=== PATIENT | female | born 1990 | race Caucasian/White ===

== ENCOUNTER 2019-11-11 14:06 | Emergency (ER) | payer OTHER ==
[~2019-11-11] VITALS: Ht 177.8 cm; Wt 74.6 kg
--- NOTE | 2019-11-11 15:00 | NUR ---
ASSUMED CARE OF PT AT THIS TIME FROM LOBBY. AMBULATORY TO ROOM WITH STEADY GAIT. 29 Y/O F PRESENTS STATING "I WENT UP TO L&D BUT THEY SEND ME DOWN HERE BECAUSE I WASNT 21 WEEKS. I STARTED HAVING MISCARRIAGE ABOUT 4 WEEKS AGO, LAST NIGHT FEVER, CHILLS, ABD PAIN AND DISCHARGE, LIKE YELLOW BUT I'M BLEEDING STILL SO HARD TO TELL, CALLED MY OB AND THEY TOLD ME TO COME IN." RATES ABD/SUPRAPUBIC PAIN 05/18, TENDER TO PALPATION. G1, P0, A0. LMP 07/24/2019, EDC 05/01/2020. PT REPORTS USING 1-2 PADS PER HOUR "BLEEDING NOT REALLY THAT HEAVY ANYMORE." A&OX4. CONT PULSE OX, BP MONITORS APPLIED. VSS. CALL LIGHT IN REACH. FALL PRECUATIONS IN PLACE. AWAITING EVAL BY ERP
[2019-11-11] MEDS ORDERED: SODIUM CHLORIDE FLUSH 10ML SYR IVF ONE (16:00)
--- NOTE | 2019-11-11 16:02 | NUR ---
IV PLACED AND LABS DRAWN BY MALCOLM LOWRY. PT AMBULATED TO RESTROOM WITH STEADY. CLEAN CATCH UA COLLECTED AND SENT TO LAB. PT AWAITING US. RESTING COMFORTABLY. VSS. CALL LIGHT IN REACH. FALL PRECAUTIONS IN PLACE.
[2019-11-11 16:12] LABS: BASOPHILS # (AUTO) 0.03 x10^3/uL (0-0.1); BASOPHILS % (AUTO) 0 % (0-1); EOSINOPHILS # (AUTO) 0.04 x10^3/uL (0-0.4); EOSINOPHILS % (AUTO) 1 % (1-7); LYMPHOCYTES # (AUTO) 1.12 x10^3/uL (1-3.4); LYMPHOCYTES % (AUTO) 19 % (22-44); MD NO; MEAN CORPUSCULAR HEMOGLOBIN 29.3 pg (27.0-34.8); MEAN CORPUSCULAR HGB CONC 32.8 g/dL (32.4-35.8); MEAN CORPUSCULAR VOLUME 89.3 fL (80-100); MEAN PLATELET VOLUME 7.9 fL (7.4-10.4); MONOCYTES # (AUTO) 0.97 x10^3/uL (0.2-0.8); MONOCYTES % (AUTO) 16 % (2-9); NEUTROPHILS # (AUTO) 3.82 x10^3/uL (1.8-6.8); NEUTROPHILS % (AUTO) 64 % (42-75); PLATELET COUNT 293 x10^3/uL (130-400); RED BLOOD COUNT 4.37 x10^6/uL (3.82-5.3); RED CELL DISTRIBUTION WIDTH 14.1 % (9.6-15.2)
[2019-11-11 16:24] LABS: ALANINE AMINOTRANSFERASE 15 U/L (12-78); ALBUMIN 4.1 g/dL (3.4-5.0); ANION GAP 5 mmol/L (5-15); CALCIUM 9.3 mg/dL (8.5-10.1); CHLORIDE 109 mmol/L (98-107); CREATININE 0.91 mg/dL (0.55-1.02)
[2019-11-11 16:28] LABS: MICROSCOPIC INDICATED
[2019-11-11 16:28] LABS: ALKALINE PHOSPHATASE 83 U/L (45-117); BILIRUBIN,TOTAL 0.3 mg/dL (0.2-1.0); TOTAL PROTEIN 7.5 g/dL (6.4-8.2)
--- NOTE | 2019-11-11 16:37 | NUR ---
BLOOD BANK CALLED STATES RETYPE NEEDED. DISCUSSED WITH DR. LUKE, GUY.
--- NOTE | 2019-11-11 17:03 | NUR ---
LAB AT BEDSIDE FOR RETYPE, AWAITING RHOGAM FROM BLOOD BANK
--- NOTE | 2019-11-11 17:11 | NUR ---
PT IN US
--- NOTE | 2019-11-11 17:48 | NUR ---
PT BACK FROM US. NAD NOTED. VSS. TO SET UP PELVIC EXAM PER MD REQUEST. DENIES NEED TO USE RESTROOM. CALL LIGHT IN REACH. FALL PRECUATIONS IN PLACE. BLOOD BANK CALLED, REQUESTED ADDITIONAL INFORMATION FROM PT AND ERP.
--- NOTE | 2019-11-11 18:00 | NUR ---
PT REPORTS "DR. VIVAS GAVE ME RHOGAM A FEW WEEKS AGO WHEN THE HEAVY BLEEDING STARTED." DISCUSSED WITH DR. LUKE, AWARE STATES "PT DOES NOT NEED REPEAT RHOGAM." BLOOD BANK CALLED, THIS RN AND DR. LUKE SPOKE WITH CHER IN BLOOD BANK. ORDER CANCELLED BY ERP. PELVIC EXAM SET UP, PT MOVED TO PELVIC BED.
--- NOTE | 2019-11-11 18:27 | NUR ---
DR. LUKE AT BEDSIDE FOR PELVIC EXAM, THIS RN AND MALCOLM LOWRY CHAPARONES. DR. LUKE SPOKE WITH CHER AGAIN IN BLOOD BANK, "THEY INSIST WE GIVE THE RHOGAM AGAIN, EVEN THOUGH PT GOT IT 3-4 WEEKS AGO." PER DR. LUKE TO ADMIN RHOGAM, PT GIVEN INFORMED CONSENT BY ERP. PT TO SIGN CONSENT
--- NOTE | 2019-11-11 18:43 | NUR ---
CONSENT FOR RHOGAM SIGNED BY PT AND ERP, PLACED ON PAPER CHART, PURPLE SLIP TAKEN TO LAB
--- NOTE | 2019-11-11 19:04 | NUR ---
REPORT FROM FABBY LOWRY.
[2019-11-11 19:09] VITALS: BP 123/51
--- NOTE | 2019-11-11 19:11 | NUR ---
RHOGHAM GIVEN IM LEFT VENTRAGLUTEAL.
--- NOTE | 2019-11-11 19:14 | NUR ---
RHOGAM VERIFIED WITH BASHIR RN AT BEDSIDE. VERIFIED MEDICATION AND ORDER WITH DR. LUKE. ADMIN PER MD ORDERS. BEDSIDE REPORT AND TRANSFER OF CARE TO BASHIR RN AT THIS TIME.
[2019-11-11] MEDS ORDERED: AMOXICILLIN/CLAV 875-125MG TABLET ONE (19:16)
[2019-11-11] MEDS ORDERED: AMOXICILLIN/CLAV 875-125MG TABLET PO ONE (19:30)
[2019-11-11 19:31] VITALS: BP 114/55
[2019-11-11] MEDS ORDERED: RHOGAM FROM BLOOD BANK 1 NOTE EA IM/IV ONE (20:00)
== END 2019-11-11 19:38 | disposition home or self-care (01) ==
LOC: ED 15:08
DX: O03.4 Incomplete spontaneous abortion without complication (principal); R50.9 Fever, unspecified
CPT/HCPCS: 36415; 76801; 80053; 81001; 84702; 85025; 86850; 86870; 86900; 87086; 96372; 99284; J2790

== ENCOUNTER 2019-11-13 15:18 | Day surgery (SDC) | payer OTHER ==
[~2019-11-13] VITALS: Ht 177.8 cm; Wt 77.5 kg
[2019-11-13 16:49] LABS: MEAN CORPUSCULAR HGB CONC 32.1 g/dL (32.4-35.8); MEAN CORPUSCULAR VOLUME 90.2 fL (80-100); MEAN PLATELET VOLUME 7.7 fL (7.4-10.4); PLATELET COUNT 277 x10^3/uL (130-400); RED BLOOD COUNT 3.71 x10^6/uL (3.82-5.3); RED CELL DISTRIBUTION WIDTH 13.8 % (9.6-15.2)
[2019-11-13 16:56] LABS: ALBUMIN 3.6 g/dL (3.4-5.0); ANION GAP 7 mmol/L (5-15); CALCIUM 9.1 mg/dL (8.5-10.1); CHLORIDE 107 mmol/L (98-107); CREATININE 0.93 mg/dL (0.55-1.02)
[2019-11-13] MEDS ORDERED: SODIUM CHLORIDE FLUSH 10ML SYR IVF ONE (17:00)
[2019-11-13] MEDS ORDERED: SODIUM CHLORIDE 0.9% 1,000ML IVBOLUS ONE (17:00)
[2019-11-13] MEDS ORDERED: ONDANSETRON 2MG/ML, 2ML IVPush ONE ×2 (17:00→19:00)
[2019-11-13] MEDS ORDERED: MORPHINE SULFATE 4 MG/ML, 1ML IVPush PRN (17:00)
[2019-11-13 17:04] LABS: BASOPHILS # (AUTO) 0.05 x10^3/uL (0-0.1); BASOPHILS % (AUTO) 1 % (0-1); EOSINOPHILS % (AUTO) 1 % (1-7); LYMPHOCYTES % (AUTO) 14 % (22-44); MD SCAN; MONOCYTES % (AUTO) 12 % (2-9); NEUTROPHILS # (AUTO) 6.98 x10^3/uL (1.8-6.8); NEUTROPHILS % (AUTO) 73 % (42-75)
[2019-11-13] MEDS ORDERED: ONDANSETRON 2MG/ML, 2ML ONE ×3 (17:12→20:19)
[2019-11-13] MEDS ORDERED: SODIUM CHLORIDE 0.9% 1,000ML IV ONE (18:00)
--- NOTE | 2019-11-13 18:13 | NUR ---
ALEX RN AT BEDSIDE. DR. LUKE MADE AWARE OF INITIAL HYPOTENSION, 2ND LITER ORDERED AND INITIATED ORDERED. PT'S COLORING HAS IMPROVED. PT REPORTS FEELING BETTER AT THIS TIME. US COMPLETE AT BEDSIDE. PT HAS WARMING BLANKETS AND WARMER IN PLACE AFTER C/O FEELING CHILLED. PT REPORTS IMPROVED COMFORT WITH MEASURES TAKEN.
[2019-11-13] MEDS ORDERED: ACETAMINOPHEN 500 MG TABLET ONE (18:20)
[2019-11-13] MEDS: ACETAMINOPHEN 500 MG TABLET PO ONE ×2 (18:22→18:37)
--- NOTE | 2019-11-13 18:33 | NUR ---
PT REPORTS SUDDEN ONSET OF PRESSURE BEHIND THE EYES AND NAUSEA AFTER SITTING UP TO TAKE MEDICATIONS. MD MADE AWARE. NEURO EXAM NEGATIVE FOR ANY DEFICITS.
--- NOTE | 2019-11-13 18:36 | NUR ---
MARLY AT BEDSIDE TO DISCUSS POC C PT AND SPOUSE.
--- NOTE | 2019-11-13 18:36 | NUR ---
PT WAS UNABLE TO TAKE PO TYLENOL D/T NAUSEA. FOLLOWING US RESULTS, ED MD STATES TO HOLD PO MEDICATIONS PT WILL NEED D&C IN OR TONIGHT.
[2019-11-13] MEDS ORDERED: MISOPROSTOL 200 MCG TABLET ONE (19:00)
[2019-11-13] MEDS ORDERED: METHYLERGONOVINE 0.2 MG/ML IM ONE (19:00)
[2019-11-13] MEDS ORDERED: SILVER NITRATE STICK TP ONE (19:00)
[2019-11-13] MEDS ORDERED: OXYTOCIN 10 UNITS/ML, 1ML ONE ×2 (19:00→20:06)
--- NOTE | 2019-11-13 19:00 | NUR ---
REPORT TO SULLY SECURITY SHIFT MANAGER.
[2019-11-13] MEDS ORDERED: CHLORHEXIDINE 15 ML UDC ONE (19:08)
--- NOTE | 2019-11-13 19:10 | NUR ---
CONSENT FOR BLOOD SIGNED. OR HERE TO TRANSPORT PT BRAYAN. SULLY IN OR STATES SHE WILL INITIATE RBC ORDER.
[2019-11-13] MEDS ORDERED: BUPIVACAINE/PF 0.25% ONE (19:21)
[2019-11-13] MEDS ORDERED: EPINEPHRINE 1 MG/ML, 1ML ONE (19:22)
[2019-11-13] MEDS ORDERED: MIDAZOLAM 1 MG/ML, 2ML ONE (19:27)
[2019-11-13] MEDS ORDERED: FENTANYL PF 100 MCG/2ML ONE (19:28)
[2019-11-13] MEDS ORDERED: LIDOCAINE-MPF 1%, 2ML ONE (19:48)
[2019-11-13] MEDS ORDERED: PROMETHAZINE 25 MG SUPP PR PRN (20:00)
[2019-11-13] MEDS ORDERED: OXYTOCIN 10 UNITS/ML, 1ML IVPB ONE (20:00)
[2019-11-13] MEDS ORDERED: PROMETHAZINE 25 MG/ML, 1ML IVPush PRN (20:00)
[2019-11-13] MEDS ORDERED: OXYcodone 5 MG/5 ML ORAL.SOL UDC PO PRN (20:00)
[2019-11-13] MEDS ORDERED: ONDANSETRON 2MG/ML, 2ML IVPush PRN (20:00)
[2019-11-13] MEDS ORDERED: MISOPROSTOL 200 MCG TABLET PO ONE (20:00)
[2019-11-13] MEDS ORDERED: BUPIVACAINE/PF-EPI 0.25% 1:200K SQ ONE (20:00)
[2019-11-13] MEDS ORDERED: HYDROmorphone 1 MG/ML, 1ML INJ IVPush PRN (20:00)
[2019-11-13] MEDS ORDERED: DIAZEPAM 5 MG/ML, 2ML IVPush PRN (20:00)
[2019-11-13] MEDS ORDERED: LORazepam 2 MG/ML, 1ML IVPush PRN (20:00)
[2019-11-13] MEDS ORDERED: ACETAMINOPHEN 325 MG TABLET PO PRN (20:00)
[2019-11-13] MEDS ORDERED: FENTANYL PF 100 MCG/2ML IV PRN (20:00)
[2019-11-13] MEDS ORDERED: DEXAMETHASONE 4 MG/ML, 1ML ONE (20:19)
[2019-11-13] MEDS ORDERED: CEFAZOLIN 1,000 MG ONE (20:19)
[2019-11-13] MEDS ORDERED: PROPOFOL 10 MG/ML, 20ML ONE (20:19)
[2019-11-13 22:00] VITALS: BP 98/63
[2019-11-13] MEDS ORDERED: OXYC-302 PO (22:00)
[2019-11-13] MEDS ORDERED: IBUP-1222 PO (22:01)
[2019-11-13] MEDS ORDERED: DOCU-131 PO (22:02)
[2019-11-13] MEDS ORDERED: iron sulfate PO (22:04)
[2019-11-13] MEDS ORDERED: ONDANSETRON 2MG/ML, 2ML IV PRN (22:30)
[2019-11-13] MEDS ORDERED: OXYcodone/APAP 5/325MG TABLET PO PRN (22:30)
[2019-11-13] MEDS ORDERED: morphine SULFATE 10 MG/ML, 1ML IV PRN (22:30)
[2019-11-13] MEDS ORDERED: HYDROmorphone 1 MG/ML, 1ML INJ IV PRN (22:30)
[2019-11-14] MEDS ORDERED: IBUPROFEN 600 MG TABLET PO SCH (06:00)
== END 2019-11-13 22:55 | disposition home or self-care (01) ==
LOC: ED 18:29 → 4NE 21:50 → ED 21:50 → 4NE 23:15
PROVIDERS: ATTEND Obstetrics & Gynecology
DX: O03.1 Delayed or excessive hemorrhage following incomplete spontaneous abortion (principal); D50.0 Iron deficiency anemia secondary to blood loss (chronic)
CPT/HCPCS: 36415; 59812; 76856; 80048; 82040; 85014; 85018; 85025; 86850; 86870; 86900; 86922; 87635; 88305; 96361; 96372; 96374; 96375; 96376; 99285; J0171; J0690; J1100; J2250; J2405; J2590; J2704; J3010; J3490; J7030; 86923; G0378; J2210